=== PATIENT | female | born 1970 | race African-American/Black ===

== ENCOUNTER 2021-12-30 08:41 | Inpatient (IN) | payer OTHER ==
[2021-12-30 10:16] VITALS: BMI 43.9
[2021-12-30] MEDS ORDERED: BISMUTH SUBSALICYLATE 262 MG/15 ML BTL PO PRN (10:27)
[2021-12-30] MEDS ORDERED: NALOXONE HCL (KLOXXADO) 8 MG SPRAY NS PRN (10:27)
[2021-12-30] MEDS ORDERED: LOPERAMIDE HCL 2 MG CAPSULE PO PRN (10:27)
[2021-12-30] MEDS ORDERED: ACETAMINOPHEN 325 MG TABLET (FP) PO PRN ×2 (10:27)
[2021-12-30] MEDS ORDERED: ONDANSETRON *ODT* 4 MG TABLET SL PRN (10:27)
[2021-12-30] MEDS ORDERED: MAG HYDROX/AL HYDROX/SIMETH 30 ML UNIT-DOSE CUP PO PRN (10:27)
[2021-12-30] MEDS ORDERED: BENZOCAINE/MENTHOL (CHLORASEPTIC ) LOZENGE MM PRN (10:27)
[2021-12-30] MEDS ORDERED: MAGNESIUM CITRATE 300 ML BOTTLE PO PRN (10:27)
[2021-12-30] MEDS ORDERED: MAGNESIUM HYDROX 2400MG/30ML ORAL SUSPENSION 30 ML CUP PO PRN (10:27)
[2021-12-30] MEDS ORDERED: NICOTINE 10 MG CARTRIDGE (INHALER) IH PRN (10:27)
[2021-12-30] MEDS ORDERED: DICYCLOMINE HCL 10 MG CAPSULE PO PRN (10:27)
[2021-12-30] MEDS: NICOTINE 21 MG/24 HOURS TOPICAL PATCH TD SCH (11:32)
[2021-12-30] MEDS: PRENATAL VITAMINS W/ FOLIC ACID TABLET (FP) PO SCH (11:32)
[2021-12-30] MEDS: METHOCARBAMOL 500 MG TABLET PO PRN (11:32)
[2021-12-30] MEDS: hydrOXYzine PAMOATE 25 MG CAPSULE (FP) PO SCH ×4 (11:32→22:39)
[2021-12-30] MEDS ORDERED: MIRTAZAPINE 15 MG TABLET (FP) PO SCH (22:00)
[2021-12-30] MEDS ORDERED: QUEtiapine FUMARATE 100 MG TABLET (FP) PO SCH (22:00)
[2021-12-30] MEDS: QUEtiapine FUMARATE 100 MG TABLET (FP) PO SCH (22:39)
[2021-12-30] MEDS: MELATONIN 5 MG TABLETS PO SCH (22:40)
[2021-12-30] MEDS: LURASIDONE HCL 20 MG TABLET PO SCH (22:40)
[2021-12-30] MEDS: THIAMINE HCL 100 MG TABLET (FP) PO SCH (22:40)
[2021-12-30] MEDS: MIRTAZAPINE 15 MG TABLET (FP) PO SCH (22:40)
[2021-12-31] MEDS: hydrOXYzine PAMOATE 25 MG CAPSULE (FP) PO SCH ×5 (05:53→22:17)
[2021-12-31] MEDS: METHOCARBAMOL 500 MG TABLET PO PRN ×2 (10:12→18:15)
[2021-12-31] MEDS: PRENATAL VITAMINS W/ FOLIC ACID TABLET (FP) PO SCH (10:12)
[2021-12-31] MEDS: NICOTINE 21 MG/24 HOURS TOPICAL PATCH TD SCH (10:13)
[2021-12-31 12:11] LABS: BLOOD UREA NITROGEN 18.2 mg/dL (7-18); CALCIUM 8.8 mg/dL (8.5-10.1)
[2021-12-31 12:14] LABS: ALBUMIN 3.3 g/dl (3.4-5.0)
[2021-12-31 12:15] LABS: CREATININE 0.9 mg/dL (0.55-1.3)
[2021-12-31 12:16] LABS: BILIRUBIN,TOTAL 0.2 mg/dL (0.2-1)
[2021-12-31 12:17] LABS: HEMATOCRIT 38.8 % (32.4-45.2); HEMOGLOBIN 12.7 GM/dL (10.7-15.3); MCH 32.2 pg (25.7-33.7); MCHC 32.7 g/dl (32.0-36.0); MEAN CELL VOLUME 98.3 fl (80-96); MEAN PLT VOLUME 9.7 fl (7.5-11.1); PLATELET COUNT 255 10^3/uL (134-434); RBC 3.94 M/mm3 (3.60-5.2); RDW 16.1 % (11.6-15.6); WHITE BLOOD COUNT 4.6 K/mm3 (4.0-10.0)
[2021-12-31] MEDS: MELATONIN 5 MG TABLETS PO SCH (22:16)
[2021-12-31] MEDS: THIAMINE HCL 100 MG TABLET (FP) PO SCH (22:17)
[2021-12-31] MEDS: LURASIDONE HCL 20 MG TABLET PO SCH (22:17)
[2021-12-31] MEDS: QUEtiapine FUMARATE 100 MG TABLET (FP) PO SCH (22:17)
[2021-12-31] MEDS: MIRTAZAPINE 15 MG TABLET (FP) PO SCH (22:17)
[2022-01-01] MEDS: hydrOXYzine PAMOATE 25 MG CAPSULE (FP) PO SCH ×2 (05:31→10:14)
[2022-01-01] MEDS ORDERED: LEVOTHYROXINE NA 100 MCG TABLET (FP) PO SCH (07:00)
[2022-01-01 10:06] VITALS: BP 139/90; PULSE 81; TEMP 97.2
[2022-01-01] MEDS: NICOTINE 21 MG/24 HOURS TOPICAL PATCH TD SCH (10:13)
[2022-01-01] MEDS: PRENATAL VITAMINS W/ FOLIC ACID TABLET (FP) PO SCH (10:14)
== END 2022-01-01 11:00 | disposition home or self-care (01) | DRG 773 ==
LOC: YASAS 08:41 → Y6N 10:44
PROVIDERS: ADMIT Allergy & Immunology; ATTEND Surgery
PROC: HZ2ZZZZ Detoxification Services for Substance Abuse Treatment (ICD-10-PCS; principal; 2021-12-30)
DX: F11.23 Opioid dependence with withdrawal (principal); F10.230 Alcohol dependence with withdrawal, uncomplicated; F14.20 Cocaine dependence, uncomplicated; F17.210 Nicotine dependence, cigarettes, uncomplicated; F19.282 Other psychoactive substance dependence with psychoactive substance-induced sleep disorder; F19.280 Other psychoactive substance dependence with psychoactive substance-induced anxiety disorder; F31.81 Bipolar II disorder; E03.9 Hypothyroidism, unspecified; I10 Essential (primary) hypertension; M54.50 Low back pain, unspecified; G89.29 Other chronic pain; Z99.89 Dependence on other enabling machines and devices; Z88.0 Allergy status to penicillin; Z88.6 Allergy status to analgesic agent; Z91.011 Allergy to milk products
CPT/HCPCS: 36415; 80053; 81025; 85027; 86780; 93005; 93010; C9803-CS; U0003; U0005

== ENCOUNTER 2022-12-11 09:50 | Inpatient (IN) | payer OTHER ==
[2022-12-11 10:38] VITALS: BMI 47.2
[2022-12-11] MEDS ORDERED: BENZONATATE 200 MG CAPSULE PO PRN (11:11)
[2022-12-11] MEDS ORDERED: BENZOCAINE/MENTHOL (CHLORASEPTIC ) LOZENGE MM PRN (11:11)
[2022-12-11] MEDS ORDERED: NICOTINE POLACRILEX 2 MG GUM BUC PRN (11:11)
[2022-12-11] MEDS ORDERED: POLYETHYLENE GLYCOL (HEALTHYLAX) 3350 17 GM PACKET PO PRN (11:11)
[2022-12-11] MEDS ORDERED: ONDANSETRON *ODT* 4 MG TABLET SL PRN (11:11)
[2022-12-11] MEDS ORDERED: P-EPHED 60MG/TRIPROLIDI 2.5MG TABLET PO PRN (11:11)
[2022-12-11] MEDS ORDERED: DICYCLOMINE HCL 10 MG CAPSULE PO PRN (11:11)
[2022-12-11] MEDS ORDERED: guaiFENesin 600 MG TABLET.ER (FP) PO PRN (11:11)
[2022-12-11] MEDS ORDERED: NICOTINE 10 MG CARTRIDGE (INHALER) IH PRN (11:11)
[2022-12-11] MEDS ORDERED: MAGNESIUM HYDROX 2400MG/30ML ORAL SUSPENSION 30 ML CUP PO PRN (11:11)
[2022-12-11] MEDS ORDERED: MAG HYDROX/AL HYDROX/SIMETH 30 ML UNIT-DOSE CUP PO PRN (11:11)
[2022-12-11] MEDS ORDERED: ACETAMINOPHEN 325 MG TABLET (FP) PO PRN (11:11)
[2022-12-11] MEDS ORDERED: LOPERAMIDE HCL 2 MG CAPSULE PO PRN (11:11)
[2022-12-11] MEDS: NICOTINE 14 MG/24 HOURS TOPICAL PATCH TD SCH (12:11)
[2022-12-11] MEDS: METHOCARBAMOL 500 MG TABLET PO PRN (12:13)
[2022-12-11] MEDS ORDERED: NICOTINE 14 MG/24 HOURS TOPICAL PATCH TD ONE (12:26)
[2022-12-11] MEDS ORDERED: METHOCARBAMOL 500 MG TABLET ONE (12:26)
[2022-12-11] MEDS: diazePAM 5 MG TABLET PO PRN ×2 (13:07→22:54)
[2022-12-11] MEDS: QUEtiapine FUMARATE 100 MG TABLET (FP) PO SCH (22:48)
[2022-12-11] MEDS: LURASIDONE HCL 40 MG TABLET PO SCH (22:48)
[2022-12-11] MEDS: GABAPENTIN 400 MG CAPSULE PO SCH (22:48)
[2022-12-11] MEDS: MELATONIN 5 MG TABLETS PO PRN (22:48)
[2022-12-11] MEDS: THIAMINE HCL 100 MG TABLET (FP) PO SCH (22:48)
[2022-12-11] MEDS: MIRTAZAPINE 15 MG TABLET (FP) PO SCH (22:48)
[2022-12-12] MEDS: LEVOTHYROXINE NA 100 MCG TABLET (FP) PO SCH (07:58)
[2022-12-12] MEDS: NICOTINE 14 MG/24 HOURS TOPICAL PATCH TD SCH (09:53)
[2022-12-12] MEDS: PRENATAL VITAMINS W/ FOLIC ACID TABLET (FP) PO SCH (09:54)
[2022-12-12] MEDS ORDERED: PNEUMOC 20-VAL CONJ-DIP CRM/PF 0.5 ML SYRINGE IM ONE (12:00)
[2022-12-12] MEDS: diazePAM 5 MG TABLET PO PRN ×2 (12:50→18:04)
[2022-12-12] MEDS: THIAMINE HCL 100 MG TABLET (FP) PO SCH (22:24)
[2022-12-12] MEDS: GABAPENTIN 400 MG CAPSULE PO SCH (22:24)
[2022-12-12] MEDS: QUEtiapine FUMARATE 100 MG TABLET (FP) PO SCH (22:24)
[2022-12-12] MEDS: MIRTAZAPINE 15 MG TABLET (FP) PO SCH (22:24)
[2022-12-12] MEDS: METHOCARBAMOL 500 MG TABLET PO PRN (22:24)
[2022-12-12] MEDS: MELATONIN 5 MG TABLETS PO PRN (22:24)
[2022-12-12] MEDS: LURASIDONE HCL 40 MG TABLET PO SCH (22:25)
[2022-12-13] MEDS: diazePAM 5 MG TABLET PO PRN ×2 (05:31→11:01)
[2022-12-13] MEDS: LEVOTHYROXINE NA 100 MCG TABLET (FP) PO SCH (06:15)
[2022-12-13] MEDS: NICOTINE 14 MG/24 HOURS TOPICAL PATCH TD SCH (11:02)
[2022-12-13] MEDS: PRENATAL VITAMINS W/ FOLIC ACID TABLET (FP) PO SCH (11:02)
[2022-12-13] MEDS: METHOCARBAMOL 500 MG TABLET PO PRN (17:29)
[2022-12-13] MEDS: LURASIDONE HCL 40 MG TABLET PO SCH (22:22)
[2022-12-13] MEDS: THIAMINE HCL 100 MG TABLET (FP) PO SCH (22:22)
[2022-12-13] MEDS: QUEtiapine FUMARATE 100 MG TABLET (FP) PO SCH (22:22)
[2022-12-13] MEDS: GABAPENTIN 400 MG CAPSULE PO SCH (22:23)
[2022-12-13] MEDS: MELATONIN 5 MG TABLETS PO PRN (22:23)
[2022-12-13] MEDS: MIRTAZAPINE 15 MG TABLET (FP) PO SCH (22:23)
[2022-12-14] MEDS: LEVOTHYROXINE NA 100 MCG TABLET (FP) PO SCH (06:02)
[2022-12-14 09:45] VITALS: BP 149/91; PULSE 97; RESP 20; TEMP 98.6
[2022-12-14] MEDS: PRENATAL VITAMINS W/ FOLIC ACID TABLET (FP) PO SCH (10:23)
[2022-12-14] MEDS: NICOTINE 14 MG/24 HOURS TOPICAL PATCH TD SCH (10:23)
== END 2022-12-14 10:46 | disposition home or self-care (01) | DRG 774 ==
LOC: YASAS 09:50 → Y3N 11:24
PROVIDERS: ADMIT Allergy & Immunology; ATTEND Surgery
PROC: HZ2ZZZZ Detoxification Services for Substance Abuse Treatment (ICD-10-PCS; principal; 2022-12-11)
DX: F10.230 Alcohol dependence with withdrawal, uncomplicated (principal); F14.20 Cocaine dependence, uncomplicated; F17.210 Nicotine dependence, cigarettes, uncomplicated; F31.9 Bipolar disorder, unspecified; F20.9 Schizophrenia, unspecified; F19.282 Other psychoactive substance dependence with psychoactive substance-induced sleep disorder; F19.280 Other psychoactive substance dependence with psychoactive substance-induced anxiety disorder; F41.9 Anxiety disorder, unspecified; E03.9 Hypothyroidism, unspecified; M54.50 Low back pain, unspecified; G89.29 Other chronic pain; Z62.810 Personal history of physical and sexual abuse in childhood; Z88.0 Allergy status to penicillin; Z88.8 Allergy status to other drugs, medicaments and biological substances; Z91.011 Allergy to milk products
CPT/HCPCS: 81025; 87635; 90677

== ENCOUNTER 2023-10-16 09:51 | Inpatient (IN) | payer OTHER ==
[2023-10-16 10:31] VITALS: BMI 37.0
[2023-10-16] MEDS ORDERED: ONDANSETRON *ODT* 4 MG TABLET SL PRN (12:02)
[2023-10-16] MEDS ORDERED: MAG HYDROX/AL HYDROX/SIMETH 30 ML UNIT-DOSE CUP PO PRN (12:02)
[2023-10-16] MEDS ORDERED: BENZONATATE 200 MG CAPSULE PO PRN (12:02)
[2023-10-16] MEDS ORDERED: ACETAMINOPHEN 325 MG TABLET (FP) PO PRN (12:02)
[2023-10-16] MEDS ORDERED: POLYETHYLENE GLYCOL (HEALTHYLAX) 3350 17 GM PACKET PO PRN (12:02)
[2023-10-16] MEDS ORDERED: NALOXONE HCL (KLOXXADO) 8 MG SPRAY NS PRN (12:02)
[2023-10-16] MEDS ORDERED: MAGNESIUM HYDROX 2400MG/30ML ORAL SUSPENSION 30 ML CUP PO PRN (12:02)
[2023-10-16] MEDS ORDERED: LOPERAMIDE HCL 2 MG CAPSULE PO PRN (12:02)
[2023-10-16] MEDS ORDERED: BENZOCAINE/MENTHOL (CHLORASEPTIC ) LOZENGE MM PRN (12:02)
[2023-10-16] MEDS ORDERED: NICOTINE POLACRILEX 2 MG GUM BUC PRN (12:02)
[2023-10-16] MEDS ORDERED: NALOXONE HCL 0.4 MG/ML VIAL IM PRN (12:02)
[2023-10-16] MEDS ORDERED: guaiFENesin 600 MG TABLET.ER (FP) PO PRN (12:02)
[2023-10-16] MEDS: propRANOLol HCL 10 MG TABLET PO SCH (15:30)
[2023-10-16] MEDS: THIAMINE 100 MG TABLET PO SCH (22:11)
[2023-10-16] MEDS: MELATONIN 5 MG TABLETS PO SCH (22:11)
[2023-10-16] MEDS: hydrOXYzine PAMOATE 25 MG CAPSULE (FP) PO PRN (22:11)
[2023-10-16] MEDS: METHOCARBAMOL 500 MG TABLET PO PRN (22:11)
[2023-10-17] MEDS: LEVOTHYROXINE NA 100 MCG TABLET (FP) PO SCH (06:37)
[2023-10-17] MEDS ORDERED: chlordiazePOXIDE HCL 25 MG CAPSULE PO PRN (10:27)
[2023-10-17] MEDS: PRENATAL VITAMINS W/ FOLIC ACID TABLET (FP) PO SCH (11:00)
[2023-10-17] MEDS: NICOTINE 14 MG/24 HOURS TOPICAL PATCH TD SCH (11:00)
[2023-10-17] MEDS: chlordiazePOXIDE HCL 25 MG CAPSULE PO SCH (11:08)
[2023-10-17] MEDS: ESCITALOPRAM OXALATE 20 MG TABLET PO SCH (11:08)
[2023-10-17] MEDS: buPROPion HCL 100 MG TABLET PO SCH (11:08)
[2023-10-17 11:56] LABS: POTASSIUM 3.5 mmol/L (3.5-5.1)
[2023-10-17 11:58] LABS: HEMATOCRIT 38.1 % (32.4-45.2); HEMOGLOBIN 12.3 GM/dL (10.7-15.3); MCH 31.9 pg (25.7-33.7); MCHC 32.3 g/dl (32.0-36.0); MEAN CELL VOLUME 98.7 fl (80-96); MEAN PLT VOLUME 10.3 fl (7.5-11.1); PLATELET COUNT 141 10^3/uL (134-434); RBC 3.86 M/mm3 (3.60-5.2); WHITE BLOOD COUNT 2.3 K/mm3 (4.0-10.0)
[2023-10-17 11:59] LABS: BLOOD UREA NITROGEN 14.1 mg/dL (7-18); CALCIUM 8.5 mg/dL (8.5-10.1)
[2023-10-17 12:03] LABS: BILIRUBIN,TOTAL 0.8 mg/dL (0.2-1); CREATININE 0.9 mg/dL (0.55-1.3)
[2023-10-17 12:04] LABS: TOT PROT 6.8 g/dl (6.4-8.2)
[2023-10-17] MEDS ORDERED: buPROPion HCL 100 MG TABLET PO SCH (14:00)
[2023-10-17] MEDS: FLU VACCINE (FLULAVAL) PF 60 MCG/0.5 ML SYRINGE 2023-2024 IM ONE (14:59)
[2023-10-17] MEDS: LURASIDONE HCL 20 MG TABLET PO SCH (17:21)
[2023-10-17] MEDS ORDERED: LURASIDONE HCL 40 MG TABLET PO SCH (22:00)
[2023-10-17] MEDS ORDERED: QUEtiapine FUMARATE 100 MG TABLET (FP) PO SCH (22:00)
[2023-10-17] MEDS: GABAPENTIN 400 MG CAPSULE PO SCH (22:35)
[2023-10-17] MEDS: MIRTAZAPINE 15 MG TABLET (FP) PO SCH (22:35)
[2023-10-17] MEDS: QUEtiapine FUMARATE 100 MG TABLET (FP) PO SCH (22:35)
[2023-10-19] MEDS: chlordiazePOXIDE HCL 25 MG CAPSULE PO SCH (06:27)
[2023-10-20] MEDS ORDERED: chlordiazePOXIDE HCL 10 MG CAPSULE PO PRN
[2023-10-20] MEDS: chlordiazePOXIDE HCL 10 MG CAPSULE PO SCH (05:38)
[2023-10-20] MEDS: QUEtiapine FUMARATE 50 MG TABLET PO SCH (21:59)
[2023-10-21] MEDS: chlordiazePOXIDE HCL 10 MG CAPSULE PO SCH (05:38)
[2023-10-21 11:15] LABS: HEMATOCRIT 33.9 % (32.4-45.2); MCH 32.2 pg (25.7-33.7); MCHC 32.6 g/dl (32.0-36.0); MEAN PLT VOLUME 10.1 fl (7.5-11.1); PLATELET COUNT 173 10^3/uL (134-434); RBC 3.43 M/mm3 (3.60-5.2); WHITE BLOOD COUNT 3.9 K/mm3 (4.0-10.0)
[2023-10-22] MEDS: chlordiazePOXIDE HCL 10 MG CAPSULE PO ONE (05:35)
[2023-10-22 10:30] VITALS: BP 129/79; PULSE 78; RESP 20; TEMP 97.8
== END 2023-10-22 09:53 | disposition home or self-care (01) | DRG 774 ==
LOC: YASAS 09:51 → Y3N 12:25
PROVIDERS: ADMIT Allergy & Immunology; ATTEND Surgery
PROC: HZ2ZZZZ Detoxification Services for Substance Abuse Treatment (ICD-10-PCS; principal; 2023-10-16)
DX: F10.230 Alcohol dependence with withdrawal, uncomplicated (principal); F14.20 Cocaine dependence, uncomplicated; F17.210 Nicotine dependence, cigarettes, uncomplicated; F31.9 Bipolar disorder, unspecified; F20.9 Schizophrenia, unspecified; F19.282 Other psychoactive substance dependence with psychoactive substance-induced sleep disorder; F43.10 Post-traumatic stress disorder, unspecified; F41.9 Anxiety disorder, unspecified; D72.819 Decreased white blood cell count, unspecified; E03.9 Hypothyroidism, unspecified; M54.50 Low back pain, unspecified; G89.29 Other chronic pain; Z62.810 Personal history of physical and sexual abuse in childhood; Z63.8 Other specified problems related to primary support group; Z88.0 Allergy status to penicillin; Z88.6 Allergy status to analgesic agent
CPT/HCPCS: 36415; 80053; 80307; 85027; 86780; 90686; 93005; 93010